=== PATIENT | male | born 1960 | race Caucasian/White ===

== ENCOUNTER 2023-09-04 13:04 | Inpatient (IN) | payer OTHER ==
[~2023-09-04] VITALS: Ht 168 cm; Wt 111.2 kg
--- NOTE | 2023-09-04 13:24 | ED Fever ---
History of Present Illness General Stated Complaint: CHILLS, LT ARM PAIN; ALTERED SPEECH History of Present Illness Date Seen by Provider: Sep 04, 2023 Time Seen by Provider: 13:13 Initial Comments 63 yr M with PMH of COPD/ Emphysema/active smoker/ HLD/ HTN, is here with c/o fever, chills, generalized weakness, shortness of breath, nausea, vomiting x 1, and chest tightness. Patient started developing all the symptoms today morning around 10:30 AM. Patient felt extremely lethargic and weak. Patient drinks about 8 glasses of iced tea every day and not much water. Patient has not been drinking anything today. Patient uses an inhaler for his COPD but does not do neb treatments. Denies diarrhea, nausea, vomiting, chest pain, palpitations, neurological deficits. No known sick contacts. Allergies and Home Medications Allergies Coded Allergies: No Known Drug Allergies (Unverified , 09/04/23) Patient Home Medication List Home Medication List Reviewed: Yes Review of Systems Review of Systems Constitutional: see HPI, chills, fever, malaise EENTM: nose congestion Respiratory: cough, short of breath Cardiovascular: no symptoms reported Gastrointestinal: nausea Genitourinary: no symptoms reported Musculoskeletal: no symptoms reported Skin: no symptoms reported Psychiatric/Neurological: No Symptoms Reported Physical Exam Vital Signs - First Documented 09/04/23 13:33 Temp 39.3 Pulse 122 Resp 24 B/P (MAP) 139/99 (112) Pulse Ox 91 O2 Delivery Room Air Capillary Refill : Height: '" Weight: lbs. oz. 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, no motor/sensory deficits, alert, normal mood/affect, oriented x 3 Skin: normal color Focused Exam Lactate Level 09/04/23 13:10: Lactic Acid Level 3.19*H Lactic Acid Level Laboratory Tests Test 09/04/23 13:10 Lactic Acid Level 3.19 MMOL/L (0.50-2.00) *H Progress/Results/Core Measures Suspected Sepsis SIRS Temperature: Pulse: Respiratory Rate: Laboratory Tests 09/04/23 13:10: White Blood Count 11.9H Blood Pressure / Mean: 09/04/23 13:10: Lactic Acid Level 3.19*H Laboratory Tests 09/04/23 13:10: Creatinine 1.12, INR Comment 0.9, Platelet Count 205, Total Bilirubin 0.4 Results/Orders Lab Results Laboratory Tests Test 09/04/23 13:10 Range/Units White Blood Count 11.9 H 4.3-11.0 10^3/uL Red Blood Count 4.82 4.30-5.52 10^6/uL Hemoglobin 15.3 13.3-17.7 g/dL Hematocrit 45 40-54 % Mean Corpuscular Volume 93 80-99 fL Mean Corpuscular Hemoglobin 32 25-34 pg Mean Corpuscular Hemoglobin Concent 34 32-36 g/dL Red Cell Distribution Width 13.4 10.0-14.5 % Platelet Count 205 130-400 10^3/uL Mean Platelet Volume 9.4 9.0-12.2 fL Immature Granulocyte % (Auto) 1 % Neutrophils (%) (Auto) 84 H 42-75 % Lymphocytes (%) (Auto) 10 L 12-44 % Monocytes (%) (Auto) 3 0-12 % Eosinophils (%) (Auto) 2 0-10 % Basophils (%) (Auto) 0 0-10 % Neutrophils # (Auto) 10.0 H 1.8-7.8 10^3/uL Lymphocytes # (Auto) 1.2 1.0-4.0 10^3/uL Monocytes # (Auto) 0.4 0.0-1.0 10^3/uL Eosinophils # (Auto) 0.2 0.0-0.3 10^3/uL Basophils # (Auto) 0.1 0.0-0.1 10^3/uL Immature Granulocyte # (Auto) 0.1 0.0-0.1 10^3/uL Prothrombin Time 12.2 12.2-14.7 SEC INR Comment 0.9 0.8-1.4 Activated Partial Thromboplast Time 23 L 24-35 SEC Sodium Level 141 135-145 MMOL/L Potassium Level 3.9 3.6-5.0 MMOL/L Chloride Level 104 98-107 MMOL/L Carbon Dioxide Level 24 21-32 MMOL/L Anion Gap 13 5-14 MMOL/L Blood Urea Nitrogen 11 7-18 MG/DL Creatinine 1.12 0.60-1.30 MG/DL Estimat Glomerular Filtration Rate 73 BUN/Creatinine Ratio 10 Glucose Level 190 H 70-105 MG/DL Lactic Acid Level 3.19 *H 0.50-2.00 MMOL/L Calcium Level 9.3 8.5-10.1 MG/DL Corrected Calcium 9.3 8.5-10.1 MG/DL Total Bilirubin 0.4 0.1-1.0 MG/DL Aspartate Amino Transf (AST/SGOT) 20 5-34 U/L Alanine Aminotransferase (ALT/SGPT) 24 0-55 U/L Alkaline Phosphatase 95 40-136 U/L Total Protein 8.1 6.4-8.2 GM/DL Albumin 4.0 3.2-4.5 GM/DL Influenza Type A (RT-PCR) Not Detected Not Detecte Influenza Type B (RT-PCR) Not Detected Not Detecte SARS-CoV-2 RNA (RT-PCR) Not Detected Not Detecte My Orders Orders - DEANDRE BURKS MD Cbc And Automated Diff (09/04/23 13:24) Comprehensive Metabolic Panel (09/04/23 13:24) Blood Culture (09/04/23 13:24) Protime With Inr (09/04/23 13:24) Partial Thromboplastin Time (09/04/23 13:24) Chest 1 View Ap/Pa Only (09/04/23 13:24) Ed Iv/Invasive Line Start (09/04/23 13:24) Ed Iv/Invasive Line Start (09/04/23 13:24) Ekg Tracing (09/04/23 13:24) Vital Signs Adult Sepsis Patie Q15M (09/04/23 13:24) O2 (09/04/23 13:24) Remove Rings In Anticipation O (09/04/23 13:24) Lactic Acid Analyzer (09/04/23 13:24) Influenza A And B By Pcr (09/04/23 13:24) Covid 19 Inhouse Test (09/04/23 13:24) Ed Iv/Invasive Line Start (09/04/23 13:29) Ns Iv 1000 Ml (Ns Iv 1000 Ml) (09/04/23 13:30) Ondansetron Injection (Ondansetron Inj (09/04/23 13:30) Acetaminophen Tablet (Acetaminophen Ta (09/04/23 13:30) Ns Iv 1000 Ml (Ns Iv 1000 Ml) (09/04/23 13:31) Drug Screen Stat (Urine) (09/04/23 13:59) Ua Culture If Indicated (09/04/23 13:59) Ipratropium/Albuterol Inh Soln (Ipratrop (09/04/23 14:15) Methylprednisolone Sod Succ (Methylpredn (09/04/23 14:07) Svn Small Volume Nebulizer (09/04/23 14:07) Ceftriaxone Iv/Im (Ceftriaxone Iv/Im) (09/04/23 14:15) Azithromycin Injection (Azithromycin Inj (09/04/23 14:15) Ketorolac Injection (Ketorolac Injection (09/04/23 14:15) Medications Given in ED Current Medications Medications Dose Ordered Sig/Nick Route Start Time Stop Time Status Last Admin Dose Admin Acetaminophen 1,000 mg ONCE ONCE PO 09/04/23 13:30 09/04/23 13:31 DC 09/04/23 13:36 1,000 MG Albuterol/ Ipratropium 3 ml ONCE ONCE INH 09/04/23 14:15 09/04/23 14:16 DC 09/04/23 14:21 3 ML Azithromycin 500 mg/Sodium Chloride 255 ml @ 250 mls/hr ONCE ONCE IV 09/04/23 14:15 09/04/23 15:16 DC 09/04/23 14:25 250 MLS/HR Ceftriaxone Sodium 1000 mg/ Sodium Chloride 50 ml @ 100 mls/hr ONCE ONCE IV 09/04/23 14:15 09/04/23 14:44 DC 09/04/23 14:19 100 MLS/HR Ketorolac Tromethamine 15 mg ONCE ONCE IVP 09/04/23 14:15 09/04/23 14:16 DC 09/04/23 14:17 15 MG Ondansetron HCl 4 mg ONCE ONCE IVP 09/04/23 13:30 09/04/23 13:31 DC 09/04/23 13:35 4 MG Vital Signs/I&O 09/04/23 13:33 Temp 39.3 Pulse 122 Resp 24 B/P (MAP) 139/99 (112) Pulse Ox 91 O2 Delivery Room Air Capillary Refill : Progress Note : Progress Note 1. SEPSIS DUE TO COMMUNITY ACQUIRED PNEUMONIA WITH DEHYDRATION CAUSING GENERALIZATION: - CXR:Bilateral interstitial opacities, given the history suspect for bilateral pneumonia. - CBC: WBC is 11, and mildly elevated - Lactic acid elevated at 3.19 - COVID test and Rapid flu test: negative - UA/ UDS: - Blood cultures sent - NS IVF bolus STAT - Tylenol and Toradol 15mg iv given for fever - Azithro iv/ Ceftriaxone 1gm iv given in ER - Pt will benefit from admission, and requires O2, is afebrile, has tachycardia with elevated WBC and lactic acid level 2. ACUTE COPD EXACERBATION: - Pt's O2 saturation on room air was 87-89%. 2L of O2 via nasal cannula given, and pt's O2 sat increased to 92%. - Duo neb x 1/ Solumedrol 125mg iv STAT Diagnostic Imaging Diagonstic Imaging: Xray Plain Films/CT/US/NM/MRI: chest Comments [facility], [place] NAME: VIDAL MILLAN [facility] REC#: [id number] PT STATUS: REG ER : 1960 PHYSICIAN: DEANDRE BURKS MD ADMIT DATE: 09/04/23/ER FS Signed Date of Exam:09/04/23 CHEST 1 VIEW AP/PA ONLY INDICATION: Sepsis FINDINGS: 5 lobe patchy interstitial infiltrates are present consistent with nonspecific infectious disease. No effusion or pneumothorax. IMPRESSION: Bilateral interstitial opacities, given the history suspect for bilateral pneumonia. No effusion or pneumothorax. Dictated by: Dictated on workstation # [id number] Dict: 09/04/23 1355 Trans: 09/04/23 1403 [facility] [id number] Interpreted by: EDWARDO WEATHERS Electronically signed by: EDWARDO WEATHERS 09/04/23 1403 Departure Communication (Admissions) Time/Spoke to Admitting Phy: 15:[address] Goldman, and accepted for admission Impression Primary Impression: Community acquired pneumonia Additional Impressions: COPD exacerbation Sepsis Disposition: 30 STILL A PATIENT Condition: Stable Admissions Decision to Admit Reason: Admit from ER (General) Decision to Admit/Date: Sep 04, 2023 Time/Decision to Admit Time: 15:00 Transfer Method of Transfer: EMS Departure-Patient Inst. Referrals: MARTIN SIMMONS DO (PCP) Primary Care Physician DEANDRE BURKS MD Sep 04, 2023 13:24
[2023-09-04] MEDS ORDERED: NS IV 1000 ML 1,000 ML IV SCH (13:30)
[2023-09-04] MEDS ORDERED: ACETAMINOPHEN 500 MG TABLET PO ONE (13:30)
[2023-09-04] MEDS ORDERED: ONDANSETRON INJECTION 4 MG/2 ML (SDV) IVP ONE (13:30)
[2023-09-04 13:31] LABS: BASOPHILS # (AUTO) 0.1 10^3/uL (0.0-0.1); BASOPHILS % (AUTO) 0 % (0-10); EOSINOPHILS # (AUTO) 0.2 10^3/uL (0.0-0.3); EOSINOPHILS % (AUTO) 2 % (0-10); HEMATOCRIT 45 % (40-54); HEMOGLOBIN 15.3 g/dL (13.3-17.7); LYMPHOCYTES # (AUTO) 1.2 10^3/uL (1.0-4.0); LYMPHOCYTES % (AUTO) 10 % (12-44); MEAN CORPUSCULAR HEMOGLOBIN 32 pg (25-34); MEAN CORPUSCULAR HGB CONC 34 g/dL (32-36); MEAN CORPUSCULAR VOLUME 93 fL (80-99); MEAN PLATELET VOLUME 9.4 fL (9.0-12.2); MONOCYTES # (AUTO) 0.4 10^3/uL (0.0-1.0); MONOCYTES % (AUTO) 3 % (0-12); NEUTROPHILS % (AUTO) 84 % (42-75); PLATELET COUNT 205 10^3/uL (130-400); WHITE BLOOD COUNT 11.9 10^3/uL (4.3-11.0)
[2023-09-04] MEDS ORDERED: NS IV 1000 ML 1,000 ML ONE ×2 (13:31→17:16)
[2023-09-04 13:40] LABS: INR 0.9 (0.8-1.4); POTASSIUM 3.9 MMOL/L (3.6-5.0); PROTHROMBIN TIME PATIENT 12.2 SEC (12.2-14.7)
[2023-09-04 13:41] LABS: BILIRUBIN,TOTAL 0.4 MG/DL (0.1-1.0); CALCIUM 9.3 MG/DL (8.5-10.1); TOTAL PROTEIN 8.1 GM/DL (6.4-8.2)
[2023-09-04 13:44] LABS: CREATININE SERUM 1.12 MG/DL (0.60-1.30)
--- NOTE | 2023-09-04 14:03 | Diagnostic Imaging Report ---
INDICATION: Sepsis FINDINGS: 5 lobe patchy interstitial infiltrates are present consistent with nonspecific infectious disease. No effusion or pneumothorax. IMPRESSION: Bilateral interstitial opacities, given the history suspect for bilateral pneumonia. No effusion or pneumothorax. Dictated by: Dictated on workstation # [id number]
[2023-09-04] MEDS ORDERED: methylPREDNISolone INJ 125 MG VIAL IV STA (14:07)
[2023-09-04] MEDS ORDERED: cefTRIAXone IV/IM 1,000 MG in NS (IVPB) 50 ML 50 ML IV ONE (14:15)
[2023-09-04] MEDS ORDERED: RT-Ipratropium/Albuterol NEB 3 ML VIAL INH ONE (14:15)
[2023-09-04] MEDS ORDERED: KETOROLAC INJ 15 MG/ML VIAL IVP ONE (14:15)
[2023-09-04] MEDS ORDERED: AZITHROMYCIN INJECTION 500 MG in NS (IVPB) 250 ML 250 ML IV ONE (14:15)
[2023-09-04] MEDS ORDERED: ANTACID SUSPENSION 30 ML UDC PO PRN (17:15)
[2023-09-04] MEDS ORDERED: ONDANSETRON INJECTION 4 MG/2 ML (SDV) IV PRN (17:15)
[2023-09-04] MEDS ORDERED: BENZONATATE 100 MG CAPSULE PO PRN (17:15)
[2023-09-04] MEDS ORDERED: MELATONIN 3 MG TABLET PO PRN (17:15)
[2023-09-04] MEDS ORDERED: cefTRIAXone IV/IM 1,000 MG in NS (IVPB) 50 ML 50 ML IV SCH (17:15)
[2023-09-04] MEDS ORDERED: ACETAMINOPHEN 500 MG TABLET PO PRN (17:15)
[2023-09-04] MEDS: NS IV 1000 ML 1,000 ML IV SCH ×2 (17:18→23:38)
[2023-09-04 17:28] VITALS: BP 111/66
[2023-09-04 17:46] VITALS: BP 96/58
[2023-09-04 20:19] VITALS: BP 126/74
[2023-09-04 23:35] VITALS: BP 128/67
[2023-09-05 03:03] VITALS: BP 122/70
[2023-09-05] MEDS: NS IV 1000 ML 1,000 ML IV SCH ×3 (05:17→12:07)
[2023-09-05 06:58] LABS: BASOPHILS % (AUTO) 0 % (0-10); EOSINOPHILS % (AUTO) 0 % (0-10); HEMATOCRIT 35 % (40-54); HEMOGLOBIN 11.7 g/dL (13.3-17.7); LYMPHOCYTES # (AUTO) 1.3 10^3/uL (1.0-4.0); LYMPHOCYTES % (AUTO) 7 % (12-44); MEAN CORPUSCULAR HEMOGLOBIN 31 pg (25-34); MEAN CORPUSCULAR HGB CONC 34 g/dL (32-36); MEAN CORPUSCULAR VOLUME 93 fL (80-99); MEAN PLATELET VOLUME 9.6 fL (9.0-12.2); MONOCYTES # (AUTO) 1.3 10^3/uL (0.0-1.0); MONOCYTES % (AUTO) 7 % (0-12); NEUTROPHILS # (AUTO) 14.5 10^3/uL (1.8-7.8); NEUTROPHILS % (AUTO) 84 % (42-75); PLATELET COUNT 167 10^3/uL (130-400); WHITE BLOOD COUNT 17.3 10^3/uL (4.3-11.0)
[2023-09-05 07:16] LABS: ALBUMIN 3.3 GM/DL (3.2-4.5); CHLORIDE 110 MMOL/L (98-107); POTASSIUM 3.5 MMOL/L (3.6-5.0); SODIUM 137 MMOL/L (135-145)
[2023-09-05 07:17] LABS: CALCIUM 8.1 MG/DL (8.5-10.1)
[2023-09-05 07:18] LABS: GLUCOSE 240 MG/DL (70-105)
[2023-09-05 07:19] LABS: TOTAL PROTEIN 6.5 GM/DL (6.4-8.2)
[2023-09-05 07:20] LABS: BILIRUBIN,TOTAL < 0.1 MG/DL (0.1-1.0); CARBON DIOXIDE 18 MMOL/L (21-32)
[2023-09-05 07:22] LABS: ALKALINE PHOSPHATASE 55 U/L (40-136); CREATININE SERUM 1.14 MG/DL (0.60-1.30); GFR ESTIMATED 72
[2023-09-05 07:23] LABS: BUN/CREATININE RATIO 11
[2023-09-05 07:25] LABS: ALANINE AMINOTRANSFERASE 17 U/L (0-55)
[2023-09-05 08:06] VITALS: BP 116/73
[2023-09-05 08:08] LABS: BAND NEUTROPHILS 7 %; LYMPHOCYTES % (MANUAL) 7 %; MONOCYTES % (MANUAL) 7 %; NEUTROPHILS % (MANUAL) 79 %
--- NOTE | 2023-09-05 08:16 | History & Physical-Hospitalist ---
History of Present Illness HPI/Chief Complaint Pt is a 63 y/o male who presented to the ER yesterday with fever, chills, weakness, SOB, chest tightness, and nausea, vomiting x1. Reports that it started suddenly at 10:30 AM that day. He has a past hx of COPD and used his regular medications like his albuterol inhaler to help with his sxs but they did not improve. He came to the hospital when he started feeling weak and shaky. He reports chest pressure on the R side that he states worsens with breathing. He denies any abd tenderness, diarrhea or constipation. Of note, patient is currently on methotrexate and embrel d/t rheumatoid arthritis. He usually sees Dr. Gleason for his PCP. Source: patient Exam Limitations: no limitations Date Seen 09/05/23 Time Seen by a Provider: 08:10 Attending Physician Tank Agudelo DO PCP Admitting Physician: Fatoumata Roblero MD Attending Physician: Fatoumata Roblero MD Referring Physician Date of Admission Sep 04, 2023 at 16:57 Home Medications & Allergies Home Medications Reviewed patient Home Medication Reconciliation performed by pharmacy medication reconciliations building energy retrofit technician and/or nursing. Patients Allergies have been reviewed. Allergies Allergies Coded Allergies No Known Drug Allergies (Esjcjtxfcc05/4/23) Past [id number]-[id number] Hx Patient Social History Tobacco Use?: No (former smoker for 39 years. Quit in 1999.) Smoking Status: Former Smoker Smokeless type used: Chew Smokeless Tobacco Frequency: Current Everyday User Use of E-Cig and/or Vaping dev: No Substance use?: No Alcohol Use?: Yes Alcohol Frequency: Several times a month Pt feels they are or have been: No Immunizations Up To Date Tetanus Booster (TDap): Unknown Hepatitis A: No Hepatitis B: No Current Status Advance Directives: No Communicates: Verbally Primary Language: Vincentian Preferred Spoken Language: Vincentian Is interpretation needed?: No Implanted or Applied Medical D: None Past Medical History Surgeries: Orthopedic (ganglion cyst removal) COPD, Emphysema High Cholesterol, Hypertension Rheumatoid Arthritis Loss of Vision: Denies Hearing Impairment: Denies Family Medical History Heart Disease Review of Systems Constitutional: chills, fever, malaise, weakness EENTM: No hearing loss, No ear pain, No vision loss, No throat pain Respiratory: No cough; dyspnea on exertion; No hemoptysis; short of breath, wheezing Cardiovascular: chest pain; No palpitations Gastrointestinal: No abdominal pain, No constipation, No diarrhea Genitourinary: No discharge, No dysuria, No frequency Musculoskeletal: No joint swelling, No muscle pain Skin: No dryness, No pruritus, No rash Psychiatric/Neurological: Denies Headache, Denies Numbness Physical Exam Physical Exam Vital Signs Vital Signs - First Documented 09/04/23 13:33 Temp 39.3 Pulse 122 Resp 24 B/P (MAP) 139/99 (112) Pulse Ox 91 O2 Delivery Room Air Capillary Refill : Height, Weight, BMI Height: '" Weight: lbs. oz. kg; 39.39 BMI Method: General Appearance: No Apparent Distress, WD/WN Eyes: Bilateral Eye Normal Inspection HEENT: TMs Normal, Normal ENT Inspection, Pharynx Normal Neck: Normal Inspection, Non Tender Respiratory: No Accessory Muscle Use, No Respiratory Distress, Crackles Cardiovascular: No Edema, Normal Peripheral Pulses, Gallop/S3 Gastrointestinal: Normal Bowel Sounds, Non Tender, Soft Extremity: Normal Inspection, Non Tender, No Pedal Edema Neurologic/Psychiatric: Alert, Oriented x3, No Motor/Sensory Deficits, Normal Mood/Affect Skin: Normal Color, Warm/Dry Lymphatic: No Adenopathy Results Results/Procedures Labs Laboratory Tests 09/04/23 13:10 09/05/23 06:33 Patient resulted labs reviewed. Assessment/Plan Admission Diagnosis Pneumonia, Sepsis, COPD exacerbation Admission Status: Inpatient Order (span 2 midnights) Reason for Inpatient Admission: Pneumonia, sepsis Assessment and Plan Pneumonia/sepsis - Continue ceftriaxone 1 mg IV/d - Continue azirthromycin 500 mg IV/d - Continue prednisone 40 mg for 5 days - Encourage IS - SCDs for DVT prophylaxis COPD exacerbation - Continue prednisone 40 mg for 5 days - Use O2 via nasal cannula if sat drops under 89% Rheumatoid arthritis - On methotrexate and embrel at home for management WOLF CARRILLO Sep 05, 2023 08:16
[2023-09-05 11:40] VITALS: BP 108/68
[2023-09-05] MEDS ORDERED: cefTRIAXone IV/IM 1,000 MG in NS (IVPB) 50 ML 50 ML IV SCH (14:30)
[2023-09-05] MEDS ORDERED: AZITHROMYCIN INJECTION 500 MG in NS (IVPB) 250 ML 250 ML IV SCH (14:30)
[2023-09-05 15:42] VITALS: BP 125/73
[2023-09-05 19:53] VITALS: BP 130/63
[2023-09-05] MEDS ORDERED: ROSUVASTATIN 10 MG TABLET PO SCH (21:00)
[2023-09-06 00:36] VITALS: BP 134/80
[2023-09-06 04:05] VITALS: BP 128/76
[2023-09-06 05:47] LABS: BASOPHILS % (AUTO) 0 % (0-10); EOSINOPHILS # (AUTO) 0.1 10^3/uL (0.0-0.3); EOSINOPHILS % (AUTO) 1 % (0-10); HEMATOCRIT 35 % (40-54); HEMOGLOBIN 11.9 g/dL (13.3-17.7); LYMPHOCYTES # (AUTO) 2.5 10^3/uL (1.0-4.0); LYMPHOCYTES % (AUTO) 18 % (12-44); MEAN CORPUSCULAR HEMOGLOBIN 31 pg (25-34); MEAN CORPUSCULAR HGB CONC 34 g/dL (32-36); MEAN CORPUSCULAR VOLUME 93 fL (80-99); MEAN PLATELET VOLUME 10.1 fL (9.0-12.2); MONOCYTES # (AUTO) 1.1 10^3/uL (0.0-1.0); MONOCYTES % (AUTO) 8 % (0-12); NEUTROPHILS # (AUTO) 9.9 10^3/uL (1.8-7.8); NEUTROPHILS % (AUTO) 72 % (42-75); PLATELET COUNT 174 10^3/uL (130-400); WHITE BLOOD COUNT 13.8 10^3/uL (4.3-11.0)
[2023-09-06 06:02] LABS: ALBUMIN 3.2 GM/DL (3.2-4.5); BILIRUBIN,TOTAL 0.3 MG/DL (0.1-1.0); CALCIUM 8.1 MG/DL (8.5-10.1); CREATININE SERUM 1.08 MG/DL (0.60-1.30); POTASSIUM 3.5 MMOL/L (3.6-5.0); TOTAL PROTEIN 6.4 GM/DL (6.4-8.2)
[2023-09-06] MEDS ORDERED: GLIMEPIRIDE 2 MG TABLET PO SCH (06:30)
[2023-09-06 07:56] VITALS: BP 145/78
[2023-09-06] MEDS ORDERED: UMECLIDINIUM/VILANTEROL 62.5/25 MCG 7 DOSES (ANORO) IH SCH (08:00)
[2023-09-06] MEDS: NS IV 1000 ML 1,000 ML IV SCH (08:21)
[2023-09-06] MEDS ORDERED: METH2.5T PO (10:07)
[2023-09-06] MEDS ORDERED: ASPI-1238 PO (10:07)
[2023-09-06] MEDS ORDERED: UMEC1BLS INH (10:07)
[2023-09-06] MEDS ORDERED: ROSU10TA28 PO (10:07)
[2023-09-06] MEDS ORDERED: ETAN50PE3 SQ (10:07)
[2023-09-06] MEDS ORDERED: GLIM2TAB4 PO ×2 (10:07)
[2023-09-06] MEDS ORDERED: FOLI1TAB33 PO (10:08)
[2023-09-06] MEDS ORDERED: FEXO180T84 PO (10:08)
[2023-09-06] MEDS ORDERED: KRIL1CAP6 PO (10:08)
[2023-09-06] MEDS ORDERED: LEVO750T PO (10:49)
[2023-09-06] MEDS ORDERED: inSUlin ASPART 1 UNIT/0.01 ML (PER UNIT) SC SCH (11:00)
[2023-09-06] MEDS ORDERED: AZITHROMYCIN 250 MG TABLET PO SCH (14:00)
== END 2023-09-06 11:33 | disposition home or self-care (01) | DRG 871 ==
LOC: ER FS 13:07 → 4TH 16:57
PROVIDERS: ADMIT Family Medicine; ATTEND Internal Medicine
DX: A41.9 Sepsis, unspecified organism (principal); J18.9 Pneumonia, unspecified organism; J44.0 Chronic obstructive pulmonary disease with (acute) lower respiratory infection; J44.1 Chronic obstructive pulmonary disease with (acute) exacerbation; Z11.52 Encounter for screening for COVID-19; J43.9 Emphysema, unspecified; I10 Essential (primary) hypertension; M06.9 Rheumatoid arthritis, unspecified; E78.00 Pure hypercholesterolemia, unspecified
CPT/HCPCS: 36415; 71045; 80053; 82947; 83605; 85007; 85025; 85027; 85610; 85730; 87040; 87636; 93005; 94760; 96361; 96365; 96367; 96375